=== PATIENT | female | born 1965 | race Caucasian/White ===

== ENCOUNTER 2016-12-19 22:33 | Emergency (ER) | payer OTHER ==
[~2016-12-19 22:33] MED LIST: DIAZEPAM5 MG PO; FLUOXETINE HYDR20 MG PO; MOTRIN800 MG PO; PERCOCET 325 MG1 TA2 PO; SYMBICORT 160/41 PUF INH
[2016-12-19 22:51] VITALS: BP 118/84
--- NOTE | 2016-12-19 23:14 | ED GENERAL ADULT ---
History of Present Illness General Chief Complaint: ETOH/Drug Related Complaint Stated Complaint: BIBA ETOH Source: patient, old records, EMS, police Exam Limitations: no limitations Vital Signs & Intake/Output Vital Signs & Intake/Output Vital Signs Date Time Temp Pulse Resp B/P B/P Pulse O2 O2 Flow FiO2 Mean Ox Delivery Rate 12/19 2313 Room Air 12/19 2251 95.7 73 16 118/84 95 Room Air Allergies Coded Allergies: NO KNOWN ALLERGIES (12/19/16) Reconcile Medications Budesonide/Formoterol Fumara (Symbicort 160-4.5 Mcg Inhaler) 160 MCG/4.5 MCG PUF 2 PUF INH PRN RESPIRATORY (Reported) Diazepam 5 MG TAB 1 TAB PO TID PRN ANXIETY (Reported) FLUOXETINE HCL (Fluoxetine Hydrochloride) 20 MG CAP 60 MG PO DAILY MENTAL HEALTH (Reported) Triage Note: BIBA ON PEER FOR ACUTE ETOH AND DRUG INTOXICATION. REPORTEDLY DRANK HALF A PINT OF VODKA AND TOOK 4 VALIUM TABLETS. PT TEARFUL AGITATED CRYING. PT TALKING ABOUT DIFFICULTIES WITH HER CHILDREN AND VERBALIZED SIGNIFIGANT STRESSORS. PER EMS PT HAD BRIEF EPISODE OF UNRESPONSIVENESS STONER HAND. PT CURRENTLY AWAKE AND YELLING AT STAFF. Triage Nurses Notes Reviewed? yes HPI: Patient called 911 because her 13-year-old was not listening to her. Upon police arrival patient was found to be intoxicated. Patient admitted to drinking vodka and taking 4 Valium tablets. Patient denies any suicidal ideations. Patient states that she is just so stressed out about her children and that is why she took the Valium. Patient was brought in on a police paper for evaluation. Patient is agitated upon arrival. Patient is not redirectable. Patient denies any hallucinations. Past History Travel History Traveled to [place] past 21 day No Medical History Any Pertinent Medical History? see below for history Neurological: NONE EENT: NONE Cardiovascular: NONE Respiratory: ?COPD Gastrointestinal: NONE Hepatic: NONE Renal: NONE Musculoskeletal: osteoarthritis Psychiatric: anxiety Endocrine: NONE Blood Disorders: NONE Cancer(s): NONE Surgical History Surgical History: , TONSILLECTOMY Psychosocial History Who do you live with Family What is your primary language Arabic Tobacco Use: Current Daily Use Daily Tobacco Use Amount/Type: => 5 Cigarettes daily ETOH Use: occasional use Illicit Drug Use: denies illicit drug use Family History Hx Contributory? No Review of Systems Review of Systems Constitutional: Reports: no symptoms. EENTM: Reports: no symptoms. Respiratory: Reports: no symptoms. Cardiovascular: Reports: no symptoms. GI: Reports: no symptoms. Genitourinary: Reports: no symptoms. Musculoskeletal: Reports: no symptoms. Skin: Reports: no symptoms. Neurological/Psychological: Reports: no symptoms. Hematologic/Endocrine: Reports: no symptoms. Immunologic/Allergic: Reports: no symptoms. All Other Systems: Reviewed and Negative Physical Exam Physical Exam General Appearance: well developed/nourished, alert, awake, moderate distress, intoxicated Head: atraumatic, normal appearance Eyes: Bilateral: PERRL, EOMI, other (SLUGGISH). Ears, Nose, Throat: normal pharynx, normal ENT inspection, hearing grossly normal Neck: normal inspection, supple, full range of motion Respiratory: normal breath sounds, chest non-tender, no respiratory distress, lungs clear Cardiovascular: regular rate/rhythm, normal peripheral pulses Gastrointestinal: normal bowel sounds, soft, non-tender, no organomegaly Back: normal inspection, normal range of motion Extremities: normal inspection, normal capillary refill, normal range of motion, no edema Neurologic/Psych: no motor/sensory deficits, awake, alert, oriented x 3, normal mood/affect Skin: intact, normal color, warm/dry Lymphatic: no anterior cervical tracy Core Measures ACS in differential dx? No CVA/TIA Diagnosis: No Severe Sepsis Present: No Septic Shock Present: No Progress Differential Diagnoses I considered the following diagnoses in my evaluation of the patient: [ALCOHOL INTOXICATION] Plan of Care: Orders Procedure Date/time Status Regular Diet 12/20 B Active Continuous Observation Monitor 12/20 0235 Active Initial ED EKG: none Comments: Patient required chemical restraints for uncontrolled agitation Patient's is here to pick her up. He will watch her tonight. He has no concerns for her safety. Departure Departure Disposition: HOME OR SELF CARE Condition: Stable Clinical Impression Primary Impression: Alcohol intoxication Qualifiers: Complication of substance-induced condition: uncomplicated Qualified Code: F10.920 - Alcohol use, unspecified with intoxication, uncomplicated Referrals: MAYRA COTE APRN (PCP/Family) Additional Instructions: RETURN FOR ANY CONCERNS Departure Forms: Customer Survey General Discharge Information Critical Care Note Critical Care Note Critical Care Time: mins: (45 MIN)
== END 2016-12-20 03:50 ==
LOC: ERH 22:33
DX: F11.29 Opioid dependence with unspecified opioid-induced disorder (principal); R45.1 Restlessness and agitation
CPT/HCPCS: 96372; 99291; J1200; J1630

== ENCOUNTER 2016-12-26 16:14 | Emergency (ER) | payer OTHER ==
[~2016-12-26] VITALS: Ht 149.9 cm; Wt 58.1 kg
--- NOTE | 2016-12-26 16:36 | ED PSYCHIATRIC COMPLAINT ---
History of Present Illness General Chief Complaint: ETOH/Drug Related Complaint Stated Complaint: BIBA FOR ETOH/ SI Source: patient, EMS Exam Limitations: intoxication Allergies Coded Allergies: NO KNOWN ALLERGIES (12/19/16) Reconcile Medications Budesonide/Formoterol Fumara (Symbicort 160-4.5 Mcg Inhaler) 160 MCG/4.5 MCG PUF 2 PUF INH PRN RESPIRATORY (Reported) Diazepam 5 MG TAB 1 TAB PO TID PRN ANXIETY (Reported) FLUOXETINE HCL (Fluoxetine Hydrochloride) 20 MG CAP 60 MG PO DAILY MENTAL HEALTH (Reported) Triage Note: PT BIBA FOR ETOH AND +SI, ON ARRIVAL PT APPEARS INTOXICATED, NOT MAKING ANY SI STATEMENTS CURRENTLY, STATING "IM JUST HERE CAUSE IM A DRUNK! DONT STEAL MY MONEY" Triage Nurses Notes Reviewed? yes Onset: Abrupt Duration: hour(s): (FEW) Timing: single episode today Severity: moderate, severe Associated Symptoms: anxiety HPI: This is a 51-year-old female with history of anxiety who presents to the ER intoxicated. According to the patient she called the police as her saw her car. When police was at the scene she told them she was sick of it and wanted to . She states that she said that only that she was sick and tired of her situation with her and 33 years. She states she would never kill herself but she has a 13-year-old son as well as a 15-year-old autistic son. No history of suicide attempt. She denies being in the ER recently which was here last week for intoxication as well. (OMER LINCOLN,DEVEN) Vital Signs & Intake/Output Vital Signs & Intake/Output Vital Signs Date Time Temp Pulse Resp B/P B/P Pulse O2 O2 Flow FiO2 Mean Ox Delivery Rate 12/26 2128 98.1 73 18 110/48 97 Room Air 12/26 1849 98.6 72 20 111/56 98 Room Air 12/26 1658 99 Room Air 12/26 1624 97.8 70 18 107/69 98 Nasal Cannula Past History Travel History Traveled to [place] past 21 day No Medical History Any Pertinent Medical History? see below for history Neurological: NONE EENT: NONE Cardiovascular: NONE Respiratory: ?COPD Gastrointestinal: NONE Hepatic: NONE Renal: NONE Musculoskeletal: osteoarthritis Psychiatric: anxiety Endocrine: NONE Blood Disorders: NONE Cancer(s): NONE Surgical History Surgical History: , TONSILLECTOMY Psychosocial History Who do you live with Family What is your primary language Yoruba Tobacco Use: Current Daily Use Daily Tobacco Use Amount/Type: => 5 Cigarettes daily ETOH Use: alcoholic Illicit Drug Use: denies illicit drug use Family History Hx Contributory? No (DEVEN KAYE MD) Review of Systems Review of Systems Constitutional: Reports: no symptoms. EENTM: Reports: no symptoms. Respiratory: Reports: no symptoms. Cardiovascular: Reports: no symptoms. GI: Reports: no symptoms. Genitourinary: Reports: no symptoms. Musculoskeletal: Reports: no symptoms. Skin: Reports: no symptoms. Neurological/Psychological: Reports: anxiety, depressed, emotional problems. Hematologic/Endocrine: Reports: no symptoms. Immunologic/Allergic: Reports: no symptoms. All Other Systems: Reviewed and Negative (DEVEN KAYE MD) Physical Exam Physical Exam General Appearance: well developed/nourished, alert, awake, anxious, mild distress, intoxicated Head: atraumatic Eyes: Bilateral: PERRL, EOMI. Ears, Nose, Throat: NO TEETH Neck: normal inspection, supple Respiratory: normal breath sounds Cardiovascular: regular rate/rhythm Gastrointestinal: soft, non-tender Extremities: normal range of motion Neurological/Psychiatric: awake, alert, anxious Skin: intact, normal color, warm/dry (DEVEN KAYE MD) SAD PERSONS Done? deferred to crisis (VICK LINCOLN,EMA Scruggs) Progress Differential Diagnosis: ALCOHOL INTOXICATION, DEPRESSION, ANXIETY Hand-Off Endorsed To: EMA HICKMAN MD Endorsed Time: 1905 Pending: consult (CRISIS), other (SOBRIETY) (DEVEN KAYE MD) Plan of Care: Orders Procedure Date/time Status Regular Diet 12/27 B Active ED CRISIS PSYCH CONSULT 12/26 1804 Active Continuous Observation Monitor 12/26 1635 Active URINE DRUGS OF ABUSE 12/26 1635 Complete ETHANOL 12/26 1635 Complete COMPREHENSIVE METABOLIC PANEL 12/26 1635 Complete CBC WITHOUT DIFFERENTIAL 12/26 1635 Complete Laboratory Tests 12/26/16 1832: Urine Opiates Screen < 100.00, Methadone Screen < 40, Barbiturate Screen < 60, Ur Phencyclidine Scrn < 6.00, Amphetamines Screen < 100, U Benzodiazepines Scrn > 800 H, Urine Cocaine Screen < 50, Urine Cannabis Screen > 80.00 H 12/26/16 1654: Anion Gap 10, Estimated GFR > 60, BUN/Creatinine Ratio 17.1, Glucose 91, Calcium 9.2, Total Bilirubin 0.5, AST 22, ALT 32, Alkaline Phosphatase 72, Total Protein 7.4, Albumin 4.3, Globulin 3.1, Albumin/Globulin Ratio 1.4, CBC w Diff NO MAN DIFF REQ, RBC 5.00, MCV 96.8, MCH 32.8 H, RDW 13.3, MPV 8.6, Gran % 51.9, Lymphocytes % 41.4, Monocytes % 4.5, Eosinophils % 1.7, Basophils % 0.5, Absolute Granulocytes 3.5, Absolute Lymphocytes 2.8, Absolute Monocytes 0.3, Absolute Eosinophils 0.1, Absolute Basophils 0, PUBS MCHC 33.9, Serum Alcohol 183.0 Comments: 12/26/2016 7:27:44 PM patient signed out to 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 (VICK LINCOLN,EMA Scruggs) Departure Departure Disposition: STILL A PATIENT Condition: Stable Referrals: MAYRA COTE APRN (PCP/Family) Departure Forms: Customer Survey General Discharge Information (OMER LINCOLN,DEVEN) Departure Clinical Impression Primary Impression: Alcohol intoxication Qualifiers: Complication of substance-induced condition: uncomplicated Qualified Code: F10.920 - Alcohol use, unspecified with intoxication, uncomplicated Secondary Impressions: Marijuana smoker Additional Instructions: Follow-up with care tomorrow. Notify your primary care doctor of this emergency department visit and treatment plan. Return if any concerns or sudden worsening. (VICK LINCOLN,EMA Scruggs)
[2016-12-26 17:01] LABS: ABSOLUTE BASOPHIL COUNT 0 /CUMM (0.0-0.2); ABSOLUTE EOSINOPHIL COUNT 0.1 /CUMM (0.0-0.7); ABSOLUTE GRANULOCYTE CT 3.5 /CUMM (1.4-6.5); ABSOLUTE LYMPH COUNT 2.8 /CUMM (1.2-3.4); ABSOLUTE MONOCYTE COUNT 0.3 /CUMM (0.10-0.60); BASOPHIL % 0.5 % (0.0-2.0); EOSINOPHIL % 1.7 % (0-5); GRANULOCYTE % 51.9 % (42.2-75.2); HEMATOCRIT 48.3 % (37-47); MEAN CORPUSCULAR HGB 32.8 PG (27.0-31.0); MEAN CORPUSCULAR HGB CONC 33.9 G/DL (33.0-37.0); MEAN CORPUSCULAR VOLUME 96.8 FL (81.0-99.0); MEAN PLATELET VOLUME 8.6 FL (7.4-10.4); PLATELET COUNT 279 /CUMM (130-400); RBC DISTRIBUTION WIDTH 13.3 % (11.5-14.5); WHITE BLOOD CELL COUNT 6.8 /CUMM (4.8-10.8)
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
[2016-12-26 21:29] VITALS: BP 110/48
== END 2016-12-26 21:29 ==
LOC: ERH 16:14
PROVIDERS: Emergency Medicine
DX: F10.129 Alcohol abuse with intoxication, unspecified (principal); F12.10 Cannabis abuse, uncomplicated
CPT/HCPCS: 80307; G0463; G0480

== ENCOUNTER 2017-07-06 20:23 | Emergency (ER) | payer OTHER ==
[~2017-07-06] VITALS: Ht 157.5 cm; Wt 91.6 kg
[~2017-07-06 20:23] MED LIST changes: +BUSPIRONE HCL10 M1 PO; +BUSPIRONE HCL5 M1 PO; +DIAZEPAM5 M1 PO; +FLUOXETINE HCL20 M2 PO; +MOBIC15 M1 PO
--- NOTE | 2017-07-06 20:26 | ED PSYCHIATRIC COMPLAINT ---
History of Present Illness General Chief Complaint: Psychiatric Related Complaint Stated Complaint: BIBA SI Source: patient, EMS, police Exam Limitations: clinical condition Vital Signs & Intake/Output Vital Signs & Intake/Output Vital Signs Date Time Temp Pulse Resp B/P B/P Pulse O2 O2 Flow FiO2 Mean Ox Delivery Rate 07/08 0906 98.4 75 20 144/72 07/08 0906 98.4 75 20 144/72 96 Room Air 07/08 0641 97.7 61 16 147/69 96 Room Air 07/08 0300 97.4 69 20 140/74 98 07/08 0052 96 94 07/08 0020 97.4 75 20 138/69 94 07/07 2230 97.0 64 16 133/76 97 Room Air 07/07 1858 98.3 72 18 134/76 95 Room Air 07/07 1701 97.6 79 18 130/92 94 Room Air 07/07 1515 98.4 86 18 144/90 93 Room Air 07/07 1250 96.7 80 17 134/74 95 Room Air Allergies Coded Allergies: NO KNOWN ALLERGIES (12/19/16) Reconcile Medications Buspirone HCl 10 MG TABLET 1 TAB PO BID MENTAL HEALTH (Reported) Diazepam 5 MG TABLET 1 TAB PO 4XDAILY PRN ANXIETY/PANIC ATTACKS (Reported) Fluoxetine HCl 20 MG CAPSULE 60 MG PO DAILY MENTAL HEALTH (Reported) Triage Nurses Notes Reviewed? yes Onset: Abrupt Duration: hour(s): (FEW) Timing: single episode today Severity: moderate, severe Associated Symptoms: DRINKING, MAKING SUICIDAL STATEMENTS HPI: This is a 52 year old female who presents to the ER for chief complaint of alcohol intoxication. She reports a pint of vodka ingestion. According to EMS and police her minor children at home took away her alcohol and she reported that if she couldn't drink she would kill herself. Patient presents disheveled, belligerent, very loud. (Mikki LINCOLN,Kalyn) Past History Medical History Any Pertinent Medical History? see below for history Neurological: NONE EENT: NONE Cardiovascular: NONE Respiratory: ?COPD Gastrointestinal: NONE Hepatic: NONE Renal: NONE Musculoskeletal: osteoarthritis Psychiatric: anxiety Endocrine: NONE Blood Disorders: NONE Cancer(s): NONE Tetanus Vaccine: 05/11/17 Surgical History Surgical History: , TONSILLECTOMY Psychosocial History Who do you live with Family What is your primary language Guatemalan Family History Hx Contributory? No (Kalyn Kaye MD) Review of Systems Review of Systems Constitutional: Reports: see HPI (LIMITED (INTOXICATED)). Denies: chills, fever. EENTM: Reports: no symptoms. Respiratory: Reports: no symptoms. Cardiovascular: Reports: no symptoms. GI: Reports: no symptoms. Genitourinary: Reports: no symptoms. Musculoskeletal: Reports: no symptoms. Skin: Reports: no symptoms. Neurological/Psychological: Reports: anxiety, emotional problems. Hematologic/Endocrine: Reports: no symptoms. Immunologic/Allergic: Reports: no symptoms. All Other Systems: Reviewed and Negative (Kalyn Kaye MD) Physical Exam Physical Exam General Appearance: well developed/nourished, alert, awake, mild distress, moderate distress, obese, DISSHEVELED Head: atraumatic Eyes: Bilateral: PERRL, EOMI. Ears, Nose, Throat: normal pharynx, normal ENT inspection, hearing grossly normal Neck: normal inspection, supple Respiratory: normal breath sounds Cardiovascular: regular rate/rhythm Gastrointestinal: soft, non-tender Extremities: normal range of motion Neurological/Psychiatric: no motor/sensory deficits, awake, agitated, alert Appearance/Memory/Insight: disheveled, impaired insight Behavoir/Eye Contact/Speech: uncooperative, decreased rate of speech Thoughts/Hallucinations: no apparent hallucination Skin: intact, normal color, warm/dry SAD PERSONS Done? unobtained due to conditi (Kalyn Kaye MD) Progress Differential Diagnosis: ALCOHOL INTOXICATION, SUBSTANCE ABUSE, ANXIETY, DEPRESSION, ? SUICIDAL IDEATION Plan of Care: Orders Procedure Date/time Status Continuous Observation Monitor 07/08 0820 Active Continuous Observation Monitor 07/08 0549 Active Current Medications Sig/Boris Start time Last Medication Dose Stop Time Status Admin Diazepam 5 MG 4 TIMES/DAY PRN 07/07 1030 AC 07/07 (Valium) 2110 Buspirone HCl 10 MG BID 07/07 1027 UNVr 07/08 (Buspar) 1049 Fluoxetine HCl 60 MG DAILY 07/07 1027 UNVr 07/08 (Prozac) 1049 Patient and became very lethargic after arrival. Minimal response to sternal rub. She was given a dose of Narcan with no significant change. Patient then woke up and stated that she didn't want to have blood drawn. We will continue to monitor her. Borderline low blood pressure, IV fluids ordered. Hand-Off Endorsed To: Mikey Powell MD Endorsed Time: 0700 Pending: consult (CRISIS INITIAL EVALUATION) (Kalyn Kaye MD) Hand-Off Endorsed To: Khris Ivy MD Endorsed Time: 190 Pending: consult (CRISIS RE-EVAL) Comments: PT HAS BEEN SEEN AND EVALUATED BY THE CHECK WEIGHER. SHE IS TO REMAIN IN THE ER TONIGHT FOR RE-EVAL IN THE MORNING. HER DAILY MEDICATIONS HAVE BEEN ORDERED. Patient has been seen and reevaluated by brim raiser and is stable for discharge at this time. (Mikey Powell MD) Departure Departure Condition: Stable Clinical Impression Primary Impression: Alcohol intoxication Secondary Impressions: Benzodiazepine dependence Referrals: Keli Becker APRN (PCP/Family) Departure Forms: Customer Survey General Discharge Information (Kalyn Kaye MD) Departure Disposition: HOME OR SELF CARE Additional Instructions: RETURN IF SYMPTOMS WORSEN OR FOR ANY CONCERNS CALL 211 OR RETURN TO THE ER FOR ANY THOUGHTS OF HARMIING YOURSELF OR ANYONE ELSE. (Mikey Powell MD) Departure Disposition: STILL A PATIENT Condition: Stable Clinical Impression Primary Impression: Alcohol intoxication Secondary Impressions: Benzodiazepine dependence Referrals: Keli Becker APRN (PCP/Family) Departure Forms: Customer Survey General Discharge Information (Kalyn Kaye MD) % 1.9, Basophils % 0.6, Absolute Granulocytes 4.4, Absolute Lymphocytes 4.1 H, Absolute Monocytes 0.4, Absolute Eosinophils 0.2, Absolute Basophils 0.1, PUBS MCHC 33.7, Serum Alcohol 214.0 Microbiology 07/06 2121 URINE ROUT: Urine Culture - CAN Cancelled: Cancelled via OE: NOT INDICATED Patient and became very lethargic after arrival. Minimal response to sternal rub. She was given a dose of Narcan with no significant change. Patient then woke up and stated that she didn't want to have blood drawn. We will continue to monitor her. Borderline low blood pressure, IV fluids ordered. Hand-Off Endorsed To: Mikey Powell MD Endorsed Time: 0700 Pending: consult (CRISIS INITIAL EVALUATION) (Kalyn Kaye MD) Hand-Off Endorsed To: Khris Ivy MD Endorsed Time: 1899 Pending: consult (CRISIS RE-EVAL) Comments: PT HAS BEEN SEEN AND EVALUATED BY THE CHECK WEIGHER. SHE IS TO REMAIN IN THE ER TONIGHT FOR RE-EVAL IN THE MORNING. HER DAILY MEDICATIONS HAVE BEEN ORDERED. (Andre LINCOLN,Mikey Quintanilla) Departure Departure Disposition: STILL A PATIENT Condition: Stable Clinical Impression Primary Impression: Alcohol intoxication Secondary Impressions: Benzodiazepine dependence Referrals: Keli Becker APRN (PCP/Family) Departure Forms: Customer Survey General Discharge Information (Mikki LINCOLN,Kalyn)
[2017-07-06 21:51] LABS: ABSOLUTE BASOPHIL COUNT 0.1 /CUMM (0.0-0.2); ABSOLUTE EOSINOPHIL COUNT 0.2 /CUMM (0.0-0.7); ABSOLUTE GRANULOCYTE CT 4.4 /CUMM (1.4-6.5); ABSOLUTE LYMPH COUNT 4.1 /CUMM (1.2-3.4); ABSOLUTE MONOCYTE COUNT 0.4 /CUMM (0.10-0.60); BASOPHIL % 0.6 % (0.0-2.0); EOSINOPHIL % 1.9 % (0-5); HEMATOCRIT 47.8 % (37-47); MEAN CORPUSCULAR HGB 31.9 PG (27.0-31.0); MEAN CORPUSCULAR HGB CONC 33.7 G/DL (33.0-37.0); MEAN CORPUSCULAR VOLUME 94.5 FL (81.0-99.0); MEAN PLATELET VOLUME 7.9 FL (7.4-10.4); PLATELET COUNT 347 /CUMM (130-400); RBC DISTRIBUTION WIDTH 12.9 % (11.5-14.5); RED BLOOD CELL CT 5.05 /CUMM (4.20-5.40); WHITE BLOOD CELL COUNT 9.1 /CUMM (4.8-10.8)
[2017-07-06 21:53] LABS: GRANULOCYTE % 48.6 % (42.2-75.2)
--- NOTE | 2017-07-07 09:35 | ED PSYCH CRISIS CONSULTATION ---
Crisis Consult Basic Assessment Date of Consult: 07/07/17 Responsible Person/Accompanied By: self/biba Insurance Authorization: Insurance #1: Insurance name: HERIBERTO Berman C&A Phone number: Policy number: [id number] Group number: Authorization number: ED Provider: Patient's ED Provider: Kalyn Kaye MD Primary Care Physician: Patient's PCP: Keli Becker APRN PCP's Current Psychiatrist: [facility] [phone] Chief Complaint: Psychiatric Related Complaint Patient's Quote: I drank 1/2 pt of vodka last night. I fell off the wagon. Present Illness: Pt is a 52 yo female biba last evening to [facility] ED on an [place] [employer] Peer. PEER documents that pt was drinking vodka and when her son took the bottle away she threatened to harm herself. Pt has a hx of [facility] ED presentations for alcohol intoxification. Pt has no reported inpatient psychiatric or substance abuse tx history. Pt reports that she has been maintaining sobriety past 2 months but relapsed yesterday. She denies remembering making a suicidal statement and reports she has never been suicdal and wouldn't kill herself because she cares for her children too much to do that. Pt appears to be a poor front office spec regarding the details of the incident prior to arrival as her version of events are inconsistent with police documentation and her sister's collateral report. 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 She also reports long standing tx with high school social studies tutor Radha Tinoco. She reports having completed IOP and is currently in 1x/wk relapse prevention group with Jennifer Conroy). Pt initially denies DCF involvement but admits to having an open case with [place] [facility]CF [facility] and worker Hi Joyce. Pt was notified that this worker will need to make a DCF hotline report due to her intoxification and suicidal statements were made in the presence of her two sons (ages 16,14). Boys spent last night in the care of her sister Cheng and returned to their father Victor Manuel in the morning. Pt presents as tired, depressed and shameful regarding relapse. Pt is cooperative and OX3.Pt became tearful worrying that DCF will try to take away her children. Pt denies SI/HI; AH/VH. Pt reports willingness to return to more intensive substance abuse tx and is requesting return to [place] [facility]. Pt informed she will be h/o for further observation and assessment and re-evaluated tomorrow morning. Patient's Address: [address] [place] [id number] Other Phone Number: Who Do You Live With? Family Family/Informants Interviewed: Collateral provided by pt sister Beatrice [phone]. She reports the kids called her yesterday to be picked up because their mom had been drinking. She reports this has happened frequently over the years. She reports the boys have 2x been in her care but have been back with their parents since 2009. She thinks there is a current DCF open case. She reports concern that pt is an alcoholic and when intoxicated becomes unsafe. She reports pt intentionally cut herself about a month ago requiring stitches though pt reports it was an accident. She reports pt has been doing well not drinking past 3 weeks. Collateral also provided by Victor Manuel [phone]. He reports being unsure why police were called yesterday. He reports he was home but in another room. He was only aware that pt had been drinking but unable to provide further information. He reports pt had been doing well avoiding drinking but thinks maybe she relapsed because they are having some financial difficulties since he is currently unemployed. Allergies - Coded Allergies: NO KNOWN ALLERGIES (12/19/16) Current Medications - Scheduled Medications Buspirone HCl 10 MG TABLET 1 TAB PO BID MENTAL HEALTH #60 (Reported) Entered as Reported by Jennifer Villalobos on 05/20/17 1452 Fluoxetine HCl 20 MG CAPSULE 60 MG PO DAILY MENTAL HEALTH #90 (Reported) Entered as Reported by Jennifer Villalobos on 05/11/17 175 Last Taken: At an unknown date and time Scheduled PRN Medications Diazepam 5 MG TABLET 1 TAB PO 4XDAILY PRN ANXIETY/PANIC ATTACKS #120 ( Reported) Entered as Reported by Jennifer Villalobos on 05/11/17 175 Laboratory Results: Laboratory Tests 07/07/17 0614: Lactic Acid Cancelled 07/07/17 0359: Lactic Acid 1.9 07/06/17 2240: Urine Opiates Screen < 100.00, Methadone Screen < 40, Barbiturate Screen < 60, Ur Phencyclidine Scrn < 6.00, Amphetamines Screen < 100, U Benzodiazepines Scrn > 800 H, Urine Cocaine Screen < 50, Urine Cannabis Screen < 5.00 07/06/172129: Anion Gap 13, Estimated GFR > 60, BUN/Creatinine Ratio 17.5, Glucose 96, Lactic Acid 2.5 H, Calcium 9.5, Magnesium 2.1, Total Bilirubin 0.2, AST 20, ALT 24, Alkaline Phosphatase 87, Total Protein 7.2, Albumin 4.2, Globulin 3.0, Albumin/ Globulin Ratio 1.4, CBC w Diff NO MAN DIFF REQ, RBC 5.05, MCV 94.5, MCH 31.9 H, RDW 12.9, MPV 7.9, Gran % 48.6, Lymphocytes % 44.7, Monocytes % 4.2, Eosinophils % 1.9, Basophils % 0.6, Absolute Granulocytes 4.4, Absolute Lymphocytes 4.1 H, Absolute Monocytes 0.4, Absolute Eosinophils 0.2, Absolute Basophils 0.1, PUBS MCHC 33.7, Serum Alcohol 214.0 Microbiology 07/06 2121 URINE ROUT: Urine Culture - CAN Cancelled: Cancelled via OE: NOT INDICATED (Juan Pinto LCSW) Addendum Note Addendum Went to check on patient for evening shift evaluation. Patient was sleeping soundly and would not respond to voice prompting. (Jean-Paul HARRINGTON,Weskan) Past History Past Medical History Neurological: NONE EENT: NONE Cardiovascular: NONE Respiratory: ?COPD Gastrointestinal: NONE Hepatic: NONE Renal: NONE Musculoskeletal: osteoarthritis Psychiatric: anxiety Endocrine: NONE Blood Disorders: NONE Cancer(s): NONE Past Surgical History Surgical History: , TONSILLECTOMY Psychosocial History Strengths/Capabilities: cares about her children. Advocates for services for 16 yo son with autism. Reports current involvement with Relapse Prevention Program at [facility]. Physical Limitations (Interventions): none noted Psychiatric Treatment History Psych Treatment Psychiatric Treatment Yes Inpatient Treatment No Outpatient Treatment Yes Location of Treatment [facility] Reason for Treatment Anxiety ETOH Dates of Treatment long standing Response to Treatment off and on stability Diagnosis by History: Anxiety ETOH Substance Use/Abuse History Drug Use/Abuse Substances Used/Abused Yes Substance Used/Abused Alcohol Last Used last night How much used/taken 1/2 pt of vodka How often reports last night was first drink in a couple of months Substance Abuse Treatment Substance Abuse Treatment Past Substance Abuse TX Yes Inpatient Treatment No Outpatient Treatment Yes Location of Treatment [facility] Reason for Treatment ETOH abuse Dates of Treatment current Response to Treatment sporadic sobriety Comments: pt prescribed Valium for anxiety d/o (Juan Pinto LCSW) Current Mental Status Mental Status Orientation: Person, Place, Situation Affect: WNL Speech: WNL Neuro-vegetative: WNL Appearance Appearance- Dress/Hygiene: hospital scrubs, flushed, bllod shot eyes; looks older than stated age Behaviors Thought Process: WNL Thought Content: WNL Memory: WNL Insight: Poor SI/HI Risk Assessment Past Suicidal Ideation/Attempts No Current Suicidal Ideation/Att No Past Homicidal Ideation/Att: No Current Homicidal Ideation/Attempts No Degree of Intent: None Danger To: Others, Self Gravely Disabled: Lack of Insight, Poor Impulse Control, Poor Judgment Risk Factors: high anxiety/distress, substance abuse, poor impulse control Lethality Ratin PTSD Checklist PTSD Done? 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 Pt reports feeling guilt and shame due to relapse but denies SI. Pt states willingness to return to [facility]. (Juan Pinto LCSW) Departure Disposition Psych Medical Clearance Date: 07/07/17 Medically Cleared at: 0845 Time Started: 0845 Time Ended: 929 Psychiatrist Consulted: Khris Oh MD Date Disposition Established: 07/07/17 Time Disposition Established: 1030 Plan for Disposition - Modality: h/o for a reassessment Rationale for Disposition: Pt biba on an [place] [employer] PEER. Report documents pt had been drinking vodka and threatened to harm self when her son took the bottle away. Pt has a hx of alcohol abuse. Pt denies SI. She admits to making similiar past staements when drinking but denies plan or intent. Plan is for pt to be h/o in ED and reassessed tomorrow. Additional Instructions: Pt denies need to admit to substance abuse inpatient but is willing to return to [facility]. Referrals Keli Becker APRN (PCP/Family) (Millie MONET,Juan) Disposition Psych Medical Clearance Date: 07/08/17 Medically Cleared at: 1000 Time Started: 1000 Time Ended: 1040 Psychiatrist Consulted: Khris Oh MD Date Disposition Established: 07/08/17 Time Disposition Established: 1040 Plan for Disposition - Modality: Outpatient Facility: Care Rationale for Disposition: pT DENIES si/hi/sh OR PSYCHOSOS AND IS mOTIVATE FOR iop loc. (Gisselle Hairston LCSW) Addendum Addendum Crisis re-evaluated pt and pt continues to deny SI/HI/SH or psychosis. she is motivated for IOP LOC. Case reviewed with Dr. Oh and he approved discharge. (Gisselle Hairston LCSW)
[2017-07-08 11:12] VITALS: BP 141/70
== END 2017-07-08 11:13 ==
LOC: ERH 20:23
PROVIDERS: Emergency Medicine
DX: F13.20 Sedative, hypnotic or anxiolytic dependence, uncomplicated (principal); F10.129 Alcohol abuse with intoxication, unspecified
CPT/HCPCS: 80307; 87086; 93005; 93010; 96361; 96372; 96374; G0463; G0480; J2310; J2405; J3360

== ENCOUNTER 2017-09-10 13:42 | Emergency (ER) | payer OTHER ==
[2017-09-10 14:02] VITALS: BP 136/84
--- NOTE | 2017-09-10 16:18 | RADIOLOGY REPORT ---
EXAMINATION: XR KNEE, LEFT CLINICAL INFORMATION: Knee pain COMPARISON: 11/01/2015 TECHNIQUE: Four views of the left knee. FINDINGS: Moderate medial compartment arthritis, with joint space loss and marginal osteophytes. Slightly progressed from previous. Lateral and patellofemoral compartments appear maintained. No visible acute fracture or dislocation. Moderate joint effusion, more prominent as compared to previous. IMPRESSION: 1. Moderate medial compartment arthritis, slightly worsened previous. 2. Moderate knee joint effusion, more prominent as compared to previous.
== END 2017-09-10 15:19 | disposition admitted as inpatient to this hospital (09) ==
LOC: ERH 13:42
DX: M25.562 Pain in left knee (principal)
CPT/HCPCS: 73562-LT; 99281

== ENCOUNTER 2017-09-29 17:55 | Emergency (ER) | payer OTHER ==
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
[2017-09-29 19:37] LABS: ABSOLUTE BASOPHIL COUNT 0.1 /CUMM (0.0-0.2); ABSOLUTE EOSINOPHIL COUNT 0.1 /CUMM (0.0-0.7); ABSOLUTE GRANULOCYTE CT 3.6 /CUMM (1.4-6.5); ABSOLUTE LYMPH COUNT 2.7 /CUMM (1.2-3.4); ABSOLUTE MONOCYTE COUNT 0.3 /CUMM (0.10-0.60); BASOPHIL % 0.9 % (0.0-2.0); EOSINOPHIL % 1.5 % (0-5); GRANULOCYTE % 53.2 % (42.2-75.2); MEAN CORPUSCULAR HGB 32.7 PG (27.0-31.0); MEAN CORPUSCULAR HGB CONC 34.5 G/DL (33.0-37.0); MEAN CORPUSCULAR VOLUME 94.6 FL (81.0-99.0); MEAN PLATELET VOLUME 7.8 FL (7.4-10.4); PLATELET COUNT 279 /CUMM (130-400); RBC DISTRIBUTION WIDTH 12.7 % (11.5-14.5); RED BLOOD CELL CT 4.45 /CUMM (4.20-5.40); WHITE BLOOD CELL COUNT 6.8 /CUMM (4.8-10.8)
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
[2017-09-30 09:34] VITALS: BP 150/80
--- NOTE | 2017-09-30 14:35 | ED PSYCH CRISIS CONSULTATION ---
Crisis Consult Basic Assessment Date of Consult: 09/30/17 Responsible Person/Accompanied By: Brought in by ambulance Insurance Authorization: Insurance #1: Insurance name: HERIBERTO Berman C&A Policy number: [id number] ED Provider: Patient's ED Provider: Filemon Jackson MD Primary Care Physician: Patient's PCP: Keli Becker APRN PCP's Current Psychiatrist: Bárbara Stratton APRN Chief Complaint: Psychiatric Related Complaint Patient's Quote: "I didn't need to come here...I was fine." Present Illness: Patient presents to [facility] emergency department on a licensed clinical executive secretary social welfare emergency certificate. The certificate states client called the [facility] crisis line and endorsed suicidal ideation. Patient's blood alcohol level was ~219 when evaluated. Patient admits she drank ~1/2 pint of vodka yesterday. Patient has longstanding history of alcohol use disorder and also reports historical diagnoses of depressive disorder and panic disorder. Patient presents alert, oriented, euthymic. She denies auditory / visual hallucinations and there is no indication of psychosis. Patient denies suicidal ideation, intent or plan. She states "I'm not going to kill my self." She elaborated "when I drink, I say something stupid." Patient states "I didnt need to come here...I was fine." Patient is currently in treatment at [facility]'s intensive outpatient program (IOP.) Patient also has outpatient mental health providers at [facility]. Patient is currently on the following psychotropic medication: Prozac, Buspar, and Diazapem. Patient is on benzodiazapine medication due to panic disorder. Patient receives medication management from Bárbara Stratton APRN at [facility]. Patient has the support of her who denies any concerns regarding her being discharged home. Patient is also involved with DCF due to her alcohol use. Patient asserts her children were with her sister yesterday and will remain there today. CSSRS [place] Suicidality scale administered - patient denies any suicidal behavior in the past week or suicidal ideation. She does have prior psychiatric treatment, severe anxiety, and substance use as risk factors. Patient identified the following protective factors: identifies reason fo rliving, responsibility to family, supportive family, fear of , spirituality. Patient's Address: [address] [place], [place] [address] Who Do You Live With? Family ( and two children) Family/Informants Interviewed: Allergies - Coded Allergies: No Known Allergies (09/29/17) Current Medications - Scheduled Medications Buspirone HCl 10 MG TABLET 1 TAB PO BID MENTAL HEALTH #60 (Reported) Entered as Reported by Jennifer Villalobos on 05/20/17 1452 Fluoxetine HCl 20 MG CAPSULE 60 MG PO DAILY MENTAL HEALTH #90 (Reported) Entered as Reported by Jennifer Villalobos on 05/11/171751 Scheduled PRN Medications Diazepam 5 MG TABLET 1 TAB PO 4XDAILY PRN ANXIETY/PANIC ATTACKS #120 ( Reported) Entered as Reported by Jennifer Villalobos on 05/11/171751 Laboratory Results: Laboratory Tests 09/29/175: Urine Opiates Screen < 100, Methadone Screen 47, Barbiturate Screen < 60, Ur Phencyclidine Scrn < 6.00, Amphetamines Screen 281, U Benzodiazepines Scrn > 800 H, Urine Cocaine Screen < 50, Urine Cannabis Screen < 5.00, Urine Color YEL, Urine Clarity CLEAR, Urine pH 6.0, Ur Specific [place] 1.020, Urine Protein NEG, Urine Ketones NEG, Urine Nitrite NEG, Urine Bilirubin NEG, Urine Urobilinogen 0.2, Ur Leukocyte Esterase NEG, Ur Microscopic EXAM NOT REQUIRED, Urine Hemoglobin NEG, Urine Glucose NEG 09/29/17 1930: CBC w Diff NO MAN DIFF REQ, RBC 4.45, MCV 94.6, MCH 32.7 H, MCHC 34.5, RDW 12.7 , MPV 7.8, Gran % 53.2, Lymphocytes % 39.5, Monocytes % 4.9, Eosinophils % 1.5, Basophils % 0.9, Absolute Granulocytes 3.6, Absolute Lymphocytes 2.7, Absolute Monocytes 0.3, Absolute Eosinophils 0.1, Absolute Basophils 0.1 09/29/17 1820: Anion Gap 16, Estimated GFR > 60, BUN/Creatinine Ratio 21.3, Glucose 108 H, Calcium 9.8, Total Bilirubin 0.6, AST 24, ALT 21, Alkaline Phosphatase 74, Total Protein 7.4, Albumin 4.0, Globulin 3.4, Albumin/Globulin Ratio 1.2, Serum Alcohol 219.0 Past History Past Medical History Neurological: NONE EENT: NONE Cardiovascular: NONE Respiratory: ?COPD Gastrointestinal: NONE Hepatic: NONE Renal: NONE Musculoskeletal: osteoarthritis Psychiatric: anxiety, depression, PANIC DISORDER AGORAPHOBIA Endocrine: NONE Blood Disorders: NONE Cancer(s): NONE 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 Advocates for services for 16 yo son with autism. Reports current involvement at [facility]. Physical Limitations (Interventions): none noted Psychiatric Treatment History Psych Treatment Psychiatric Treatment Yes Inpatient Treatment Yes Outpatient Treatment Yes Location of Treatment [facility] (outpatient) and [facility] (IOP) Reason for Treatment Alcohol use disorder Dates of Treatment Longstanding treatment since age 16 Response to Treatment Varied - patient has sustained sobriety in the past Diagnosis by History: Anxiety disorder Alcohol use disorder Depressive disorder Substance Use/Abuse History Drug Use/Abuse Substances Used/Abused Yes Substance Used/Abused Alcohol First Use Age 16 Last Used Yesterday How much used/taken ~1/2 pint of Vodka How often Patient reports only one use in past week For how long Patient has extended history of alcohol abuse Route of use Ingestion Substance Abuse Treatment Substance Abuse Treatment Past Substance Abuse TX Yes Inpatient Treatment Yes Outpatient Treatment Yes Location of Treatment [facility] IOP currently Reason for Treatment alcohol use disorder Dates of Treatment September 2017 to present Response to Treatment Positive per patient. Current Mental Status Mental Status Orientation: Person, Place, Situation Affect: Flat Speech: WNL Neuro-vegetative: WNL Appearance Appearance- Dress/Hygiene: Patient dressed in hospital attire - no remarkable features observed. Behaviors Thought Process: WNL Thought Content: WNL Memory: WNL Insight: Fair SI/HI Risk Assessment Past Suicidal Ideation/Attempts Yes Current Suicidal Ideation/Att No Past Homicidal Ideation/Att: No Current Homicidal Ideation/Attempts No Degree of Intent: None Risk Factors: high anxiety/distress, substance abuse Lethality Ratin (mild) PTSD Checklist PTSD Done? patient declined ED Management Sitter: Yes Restraints: No DSM5/PS Stressors/Medical Prob Diagnosis' (DSM 5, Stressors, Medical): F10.20 Alcohol use disorder, Moderate F41.0 Panic disorder F32.9 Unspecified depressive disorder Current GAF: 40 Departure Disposition Psych Medical Clearance Date: 09/30/17 Medically Cleared at: 0815 Time Started: 0815 Time Ended: 899 Psychiatrist Consulted: Murphy LINCOLN,Yvonne Date Disposition Established: 09/30/17 Time Disposition Established: 899 Plan for Disposition - Modality: IOP Facility: [facility] Follow-up Appt Date: 10/01/17 Follow-Up Appt Time: 899 Rationale for Disposition: Crisis evaluation reviewed with on-call psychiatrist Dr. Arrington. Patient does not present with any risk factors currently which would warrant further hold in the ED or consideration of an inpatient psychiatric admission. Patient is involved in treatment at [facility]'s IOP program and will be attending tomorrow. Patient's will support patient as she discharges. Patient advised to contact 211 or emergency services if a crisis recurs prior to next outpatient appointment. Patient signed a Community Care Team (CCT) release of information - this science writer will fax her evaluation today for their review. Referrals Keli Becker APRN (PCP/Family)
== END 2017-09-30 09:35 ==
LOC: ERH 17:55
PROVIDERS: Physician Assistant Medical
DX: F10.129 Alcohol abuse with intoxication, unspecified (principal); R45.851 Suicidal ideations
CPT/HCPCS: 80307; 81003; G0463; G0480; J3360

== ENCOUNTER 2017-12-02 15:58 | Emergency (ER) | payer OTHER ==
[~2017-12-02] VITALS: Ht 154.9 cm; Wt 95.3 kg
--- NOTE | 2017-12-02 16:27 | ED PSYCHIATRIC COMPLAINT ---
See Addendum History of Present Illness General Chief Complaint: ETOH/Drug Related Complaint Stated Complaint: BIBA POLICE PAPERED, +ETOH Source: patient, old records, EMS, police Exam Limitations: intoxication Vital Signs & Intake/Output Vital Signs & Intake/Output Vital Signs Date Time Temp Pulse Resp B/P B/P Pulse O2 O2 Flow FiO2 Mean Ox Delivery Rate 12/03 0024 98.0 73 20 102/63 93 Room Air 12/02 1713 95.0 68 18 110/52 95 Room Air 12/02 1654 Room Air 12/02 1633 96.0 74 20 107/57 96 Room Air ED Intake and Output 12/03 0000 12/02 1200 Intake Total 0 Output Total 0 Balance 0 Intake, Oral 0 Output, Urine 0 Patient 210 lb Weight Allergies Coded Allergies: No Known Allergies (09/29/17) Reconcile Medications Buspirone HCl 10 MG TABLET 1 TAB PO BID MENTAL HEALTH (Reported) Diazepam 5 MG TABLET 1 TAB PO 4XDAILY PRN ANXIETY/PANIC ATTACKS (Reported) Fluoxetine HCl 20 MG CAPSULE 60 MG PO DAILY MENTAL HEALTH (Reported) Triage Nurses Notes Reviewed? yes Onset: Afternoon Duration: hour(s):, constant, continues in ED Timing: recent history Severity: severe Associated Symptoms: anxiety, impaired concentration, suicidal ideation LMP (ages 10-50): post menopausal : No Patient currently breastfeeds: No HPI: 3 hours prior to admission the police were called to the patient's home for verbal fighting between spouses. The patient called 911 several times inquiring about her children. The police were dispatched along with EMS found the patient intoxicated stating she wanted to . She denies fever chills nausea vomiting diarrhea abdominal pain chest pain shortness breath headache dysuria rash bleeding. (Filemon Jackson MD) Past History Travel History Traveled to [place] past 21 day No Medical History Any Pertinent Medical History? 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 No (Filemon Jackson MD) Review of Systems Review of Systems Constitutional: Reports: no symptoms. EENTM: Reports: no symptoms. Respiratory: Reports: no symptoms. Cardiovascular: Reports: no symptoms. GI: Reports: no symptoms. Genitourinary: Reports: no symptoms. Musculoskeletal: Reports: no symptoms. Skin: Reports: no symptoms. Neurological/Psychological: Reports: see HPI, cognitive dysfunction, confusion, emotional problems. Hematologic/Endocrine: Reports: no symptoms. Immunologic/Allergic: Reports: no symptoms. All Other Systems: Reviewed and Negative (Filemon Jackson MD) Physical Exam Physical Exam General Appearance: well developed/nourished, alert, awake, anxious, severe distress, intoxicated, obese Head: atraumatic, normal appearance Eyes: Bilateral: normal appearance, PERRL, EOMI. Ears, Nose, Throat: normal pharynx, normal ENT inspection, hearing grossly normal, moist mucus membranes Neck: normal inspection, supple, full range of motion, no midline tenderness Respiratory: normal breath sounds, chest non-tender, no respiratory distress, quiet respiration, lungs clear Cardiovascular: regular rate/rhythm, normal peripheral pulses, norml femoral pulses equa Gastrointestinal: normal bowel sounds, soft, non-tender, no organomegaly Extremities: normal range of motion, no ligament instability Neurological/Psychiatric: no motor/sensory deficits, awake, agitated, alert, anxious, organ teacher II-XII nml as tested, disoriented x 3 Appearance/Memory/Insight: disheveled, impaired insight Behavoir/Eye Contact/Speech: uncooperative, compulsive, increased rate of speech , threatening eye contact Thoughts/Hallucinations: no apparent hallucination Skin: intact, normal color, warm/dry SAD PERSONS SAD PERSONS Response Value Age <19 or >45 years? yes 1 Depression/Hopelessness? yes 2 Previous Attempts/Psych Care yes 1 Excessive Ethanol/Drug Use? yes 1 Rational Thinking Loss? yes 2 Social Support? has support 0 Total 7 SAD PERSONS Done? yes (Filemon Jackson MD) Progress Differential Diagnosis: drug intoxication, drug overdose, drug withdrawal, electrolyte abnormality, hypoglycemia Plan of Care: Orders Procedure Date/time Status ED CRISIS PSYCH CONSULT 12/02 1911 Active Continuous Observation Monitor 12/02 1605 Active CIWA 12/02 1605 Active URINE DRUG SCREEN FOR ER ONLY 12/02 1605 Complete ETHANOL 12/02 1605 Complete COMPREHENSIVE METABOLIC PANEL 12/02 1605 Complete CBC WITHOUT DIFFERENTIAL 12/02 1605 Complete Laboratory Tests 12/02/17 1710: Anion Gap 15, Estimated GFR > 60, BUN/Creatinine Ratio 26.3 H, Glucose 102 H, Calcium 9.7, Total Bilirubin 0.3, AST 21, ALT 25, Alkaline Phosphatase 86, Total Protein 7.0, Albumin 3.9, Globulin 3.1, Albumin/Globulin Ratio 1.3, CBC w Diff NO MAN DIFF REQ, RBC 4.86, MCV 93.8, MCH 32.3 H, MCHC 34.4, RDW 12.9, MPV 7.9, Gran % 62.9, Lymphocytes % 30.4, Monocytes % 4.0, Eosinophils % 2.2, Basophils % 0.5, Absolute Granulocytes 6.6 H, Absolute Lymphocytes 3.2, Absolute Monocytes 0.4, Absolute Eosinophils 0.2, Absolute Basophils 0.1, Serum Alcohol 210.0 12/02/17 1622: Urine Opiates Screen < 100, Methadone Screen < 40, Barbiturate Screen < 60, Ur Phencyclidine Scrn < 6.00, Amphetamines Screen < 100, U Benzodiazepines Scrn > 800 H, Urine Cocaine Screen < 50, Urine Cannabis Screen < 5.00 Hand-Off Endorsed To: Cata LINCOLN,Khris Del Rio Endorsed Time: 1899 Pending: CT, consult Comments: After changing into paper scrubs patient collapsed to the ground without injury unresponsive to stimuli. 10 minutes later she awoke agitated confused aggressive. Sedation ordered for patient and staff safety. (Manuel LINCOLN,Filemon) Diagnostic Imaging: Viewed by Me: CT Scan. Discussed w/RAD: CT Scan. Radiology Impression: PATIENT: EMILY HERNANDEZ PRESENT AGE: 52 PATIENT ACCOUNT NO: [id number] : 63 LOCATION: [facility], [place] ORDERING PHYSICIAN: Filemon Jackson MD SERVICE DATE: 12/02/17 EXAM TYPE: CAT - CT HEAD WO IV CONTRAST EXAMINATION: CT HEAD without contrast CLINICAL INFORMATION: EtOH COMPARISON: No prior CT scan available for comparison. TECHNIQUE: Computer axial tomographic sections acquired at 2.5 mm thin section without contrast. Reconstructed coronal views. DLP: mGy-cm FINDINGS: CEREBRAL HEMISPHERES: There is no evidence of intra-axial or extra-axial mass, hemorrhage or acute infarct. BRAIN PARENCHYMA: Normal stokes-white matter differentiation. SUBDURAL SPACE: No bleed. BASAL GANGLIA AND PINEAL GLAND: Unremarkable VENTRICLES: Symmetric and normal in size. CEREBELLUM AND BRAINSTEM: No space-occupying mass, hemorrhage or acute infarct. CEREBELLOPONTINE ANGLES: No lesion found. ORBITS: No intraorbital mass. VESSELS: Unremarkable SKULL BASE: Unremarkable INCLUDED SINUSES AT SKULL BASE: Clear SKULL AND SKIN: No fracture or bone lesion found. IMPRESSION: No CT evidence of acute intracranial bleed. No mass or infarct found. DICTATED BY: Wendy Triplett MD DATE/TIME DICTATED:12/02/172125 HAT BAND ATTACHER:MARLO DATE/TIME TRANSCRIBED:12/02/172125 CONFIDENTIAL, DO NOT COPY WITHOUT APPROPRIATE AUTHORIZATION. <Electronically signed in Other Vendor System> SIGNED BY: Wendy Triplett MD 12/02/172133 Hand-Off Endorsed To: Filemon Jackson MD Endorsed Time: 0700 Pending: consult (Cata LINCOLN,Khris Del Rio) Departure Departure Disposition: STILL A PATIENT Condition: Stable Clinical Impression Primary Impression: Alcohol intoxication delirium Secondary Impressions: Suicidal ideation Referrals: Keli Becker APRN (PCP/Family) Departure Forms: Customer Survey General Discharge Information (Filemon Jackson MD)
[2017-12-02 17:21] LABS: ABSOLUTE BASOPHIL COUNT 0.1 /CUMM (0.0-0.2); ABSOLUTE EOSINOPHIL COUNT 0.2 /CUMM (0.0-0.7); ABSOLUTE GRANULOCYTE CT 6.6 /CUMM (1.4-6.5); ABSOLUTE LYMPH COUNT 3.2 /CUMM (1.2-3.4); ABSOLUTE MONOCYTE COUNT 0.4 /CUMM (0.10-0.60); BASOPHIL % 0.5 % (0.0-2.0); EOSINOPHIL % 2.2 % (0-5); GRANULOCYTE % 62.9 % (42.2-75.2); HEMATOCRIT 45.5 % (37-47); MEAN CORPUSCULAR HGB 32.3 PG (27.0-31.0); MEAN CORPUSCULAR HGB CONC 34.4 G/DL (33.0-37.0); MEAN CORPUSCULAR VOLUME 93.8 FL (81.0-99.0); MEAN PLATELET VOLUME 7.9 FL (7.4-10.4); PLATELET COUNT 299 /CUMM (130-400); RBC DISTRIBUTION WIDTH 12.9 % (11.5-14.5); RED BLOOD CELL CT 4.86 /CUMM (4.20-5.40); WHITE BLOOD CELL COUNT 10.5 /CUMM (4.8-10.8)
--- NOTE | 2017-12-02 21:34 | CT SCAN REPORT ---
EXAMINATION: CT HEAD without contrast CLINICAL INFORMATION: EtOH COMPARISON: No prior CT scan available for comparison. TECHNIQUE: Computer axial tomographic sections acquired at 2.5 mm thin section without contrast. Reconstructed coronal views. DLP: mGy-cm FINDINGS: CEREBRAL HEMISPHERES: There is no evidence of intra-axial or extra-axial mass, hemorrhage or acute infarct. BRAIN PARENCHYMA: Normal stokes-white matter differentiation. SUBDURAL SPACE: No bleed. BASAL GANGLIA AND PINEAL GLAND: Unremarkable VENTRICLES: Symmetric and normal in size. CEREBELLUM AND BRAINSTEM: No space-occupying mass, hemorrhage or acute infarct. CEREBELLOPONTINE ANGLES: No lesion found. ORBITS: No intraorbital mass. VESSELS: Unremarkable SKULL BASE: Unremarkable INCLUDED SINUSES AT SKULL BASE: Clear SKULL AND SKIN: No fracture or bone lesion found. IMPRESSION: No CT evidence of acute intracranial bleed. No mass or infarct found.
--- NOTE | 2017-12-02 21:44 | CT SCAN REPORT ---
EXAMINATION: CT CERVICAL SPINE CT cervical spine without contrast EXAMINATION: CLINICAL INFORMATION: EtOH. COMPARISON: Report from prior CT 2015 the images of which are not available. TECHNIQUE: Computed axial sagittal and coronal images acquired using department's standard protocol. CONTRAST: None FINDINGS: SKULL BASE: Visualized structures at skull base are normal, Included facial sinuses are clear, CERVICAL VERTEBRAE: 7 cervical vertebrae identified maintaining normal height and alignments. There are Schmorl node in the inferior endplates of L3 and L4. L5. Posterior spinous process of all vertebrae are intact. The tip of the posterior spinous process of C7 is not infused. DISCS: C1-C2: There is no CT evidence of significant osseous narrowing of the central canal or neural foramen. C2-C3: Bilateral facet joints arthropathy. No central or foraminal stenosis. C3-C4: Mild degenerative disc disease. No central or foraminal stenosis. No fractures. C4-C5: Narrowing of disc space combined with developed posterior osteophyte ridge and facet joints arthropathy cause bilateral foraminal stenosis. There is mild narrowing of the central canal. No fracture. C5-C6: Degenerative disc disease with developed osteophyte ridge causes bilateral mild foraminal stenosis, mild central narrowing. C6-C7: Degenerative disc disease, posterior osteophyte ridge causes mild narrowing of the central canal. No significant foraminal stenosis. No fractures. C7-T1: There is no CT evidence of significant osseous narrowing of the central canal or neural foramen. PARAVERTEBRAL SOFT TISSUE: Paravertebral soft tissues unremarkable. IMPRESSION: 1. Advanced degenerative disc disease of the cervical spine combined with osteophyte ridges at multiple levels cause narrowing of the central canal and foraminal stenosis at multiple levels, if patient is symptomatic, may consider MRI. 2. No CT evidence of acute fracture.
[2017-12-03 10:26] VITALS: BP 137/80
--- NOTE | 2017-12-03 10:37 | ED PSYCH CRISIS CONSULTATION ---
See Addendum Crisis Consult Basic Assessment Date of Consult: 12/03/17 Responsible Person/Accompanied By: self/biba/PEER Insurance Authorization: Insurance #1: Insurance name: HERIBERTO Berman C&A Phone number: Policy number: [id number] Group number: Authorization number: ED Provider: Patient's ED Provider: Filemon Jackson MD Primary Care Physician: Patient's PCP: Keli Becker APRN PCP's Current Psychiatrist: [facility] - most recently Bárbara Stratton APRN Chief Complaint: ETOH/Drug Related Complaint Patient's Quote: I messed up yesterday. Present Illness: Pt is a 52 yo female biba yesterday afternoon to [place] ED on an [place] [employer] PEER documenting pt intoxification and threat to cut herself. Pt ED BAL: 210. Pt urine tox screen also positive for prescribed benzos. Pt reports she relapsed yesterday, drinking 1/2 pint of vodka, after 6-7weeks sobriety. Pt reports she has recently completed [facility] IOP and is currently attending their Relapse Recovery Group. Pt denies SI/HI. Pt reports no gun access. Pt denies AH/VH/ No presence of psychotic thinking. Pt reports a long hx of etoh abuse and is receiving medication management at [facility] most recently with Bárbara Stratton APRN. She has current prescriptions for Valium; Prozac and Buspar. Pt reports "I messed up yesterday. I thought I could drink a little but I can't drink just a little." Pt has been seen several times in [place] ED past few yrs for similiar episodes of making SI statements when intoxicated. Pt denies attempts to ever harm self. Colateral provided by also reports pt has never attempted to harm self. Her Alejanrdo reports she has "never been suicidal". Pt has no hx of inpatient psychiatric tx. Pt has two teenage sons who are at their aunt Beatrice's house due to yesterday incident. Beatrice reports she always takes the kids to her house when she knows or becomes aware that pt has been drinking. DCF is currently involved. Alejandro reports his and pts recent involvement with [facility] was recommended by DCF. Pt presents as tired, cooperative and OX3. Pt offers remorse regarding relapse and motivation to request IOP again tomorrow at [facility] when she attends her relapse Recovery Group. Case reviewed with Dr Hendrickson. Recommendation for pt to return to [facility] IOP and avoid etoh. Reviewed recommendation with pt and . Both feel safe with plan to discharge and agree with resuming IOP program at [facility]. Pt advised to go to [place] ED or [facility] ED if concerns regarding safety return. Patient's Address: [address] [place] [address] [address] [place] [address] Other Phone Number: Who Do You Live With? Family Family/Informants Interviewed: collateral provided by Alejandro Cavanaugh and pt sister Beatrice [phone]. Alejandro reports pt has cut down on drinking since active tx at [facility]. He reports she "fell off the wagon" yesterday. He reports belief that she isn't a safety risk and has never been suicidal. He reports feeling comfortable with plan for pt to d/c home and follow up with [facility] tomorrow. Tod reports concern for kids when sister is drinking. She reports there is DCF involvement. She reports she usually has the kids stay with her when pt is dinking. Allergies - Coded Allergies: No Known Allergies (09/29/17) Current Medications - Scheduled Medications Buspirone HCl 10 MG TABLET 1 TAB PO BID MENTAL HEALTH #60 (Reported) Entered as Reported by Jennifer Villalobos on 05/20/17 1452 Fluoxetine HCl 20 MG CAPSULE 60 MG PO DAILY MENTAL HEALTH #90 (Reported) Entered as Reported by Jennifer Villalobos on 05/11/17 1752 Scheduled PRN Medications Diazepam 5 MG TABLET 1 TAB PO 4XDAILY PRN ANXIETY/PANIC ATTACKS #120 ( Reported) Entered as Reported by Jennifer Villalobos on 05/11/17 175 Laboratory Results: Laboratory Tests 12/02/17 1710: Anion Gap 15, Estimated GFR > 60, BUN/Creatinine Ratio 26.3 H, Glucose 102 H, Calcium 9.7, Total Bilirubin 0.3, AST 21, ALT 25, Alkaline Phosphatase 86, Total Protein 7.0, Albumin 3.9, Globulin 3.1, Albumin/Globulin Ratio 1.3, CBC w Diff NO MAN DIFF REQ, RBC 4.86, MCV 93.8, MCH 32.3 H, MCHC 34.4, RDW 12.9, MPV 7.9, Gran % 62.9, Lymphocytes % 30.4, Monocytes % 4.0, Eosinophils % 2.2, Basophils % 0.5, Absolute Granulocytes 6.6 H, Absolute Lymphocytes 3.2, Absolute Monocytes 0.4, Absolute Eosinophils 0.2, Absolute Basophils 0.1, Serum Alcohol 210.0 12/02/17 1622: Urine Opiates Screen < 100, Methadone Screen < 40, Barbiturate Screen < 60, Ur Phencyclidine Scrn < 6.00, Amphetamines Screen < 100, U Benzodiazepines Scrn > 800 H, Urine Cocaine Screen < 50, Urine Cannabis Screen < 5.00 Past History Past Medical History Neurological: NONE EENT: NONE Cardiovascular: NONE Respiratory: ?COPD Gastrointestinal: NONE Hepatic: NONE Renal: NONE Musculoskeletal: osteoarthritis Psychiatric: alcohol dependence, anxiety, depression, PANIC DISORDER AGORAPHOBIA Endocrine: NONE Blood Disorders: NONE Cancer(s): NONE 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 Advocates for services for 16 yo son with autism. Reports current involvement at [facility]. Physical Limitations (Interventions): none noted Psychiatric Treatment History Psych Treatment Psychiatric Treatment Yes Inpatient Treatment No Outpatient Treatment Yes Location of Treatment Care; [facility] Reason for Treatment alcohol use depression Dates of Treatment current Response to Treatment pt reports motivation to stop drinking. Pt reports recent sobriety since starting [facility] IOP. Pt reports yesterday first etoh use past 6-7 weeks. Diagnosis by History: Anxiety disorder Alcohol use disorder Depressive disorder Substance Use/Abuse History Drug Use/Abuse Substances Used/Abused Yes Substance Used/Abused Alcohol Last Used yesterday How much used/taken 1/2 pint vodka How often pt reports yesterday was first use in 6-7 weeks For how long long hx of alcohol use d/o Substance Abuse Treatment Substance Abuse Treatment Past Substance Abuse TX Yes Inpatient Treatment No Outpatient Treatment Yes Location of Treatment [facility] Reason for Treatment etoh use Dates of Treatment current Response to Treatment pt reports motivation to achieve sobriety Comments: pt reports drinking vodka yesterday. She reports it was 1st relapse since starting [facility] IOP about 8 weeks ago. She denies substance use except for prescribed Valium. Current Mental Status Mental Status Orientation: Person, Place, Situation Affect: Sad Speech: WNL Neuro-vegetative: WNL Appearance Appearance- Dress/Hygiene: hospital scrubs; disheveled; appears older than stated age Behaviors Thought Process: WNL Thought Content: WNL Memory: WNL Insight: Fair SI/HI Risk Assessment Past Suicidal Ideation/Attempts Yes Current Suicidal Ideation/Att No Past Homicidal Ideation/Att: No Current Homicidal Ideation/Attempts No Degree of Intent: None Gravely Disabled: Poor Impulse Control, Poor Judgment Risk Factors: high anxiety/distress, substance abuse, poor impulse control Lethality Ratin PTSD Checklist PTSD Done? patient declined ED Management Sitter: Yes Restraints: No DSM5/PS Stressors/Medical Prob Diagnosis' (DSM 5, Stressors, Medical): Alcohol Use Disoder F10.20 Unspecified Depressive D/O F32.9 financial special needs child marital conflict Current GAF: 35 Comments: Pt reports relapse yesterday following 6-7 weeks sober. Pt denies SI-states I say stupid things when I drinK". Pt reports motivation to get and stay sober. Departure Disposition Psych Medical Clearance Date: 12/03/17 Medically Cleared at: 0930 Time Started: 0930 Time Ended: 1015 Psychiatrist Consulted: Shayla Hendrickson MD Date Disposition Established: 12/03/17 Time Disposition Established: 1100 Plan for Disposition - Modality: Outpatient Facility: [facility] Follow-up Appt Date: 12/04/17 Rationale for Disposition: Pt reports relapse yesterday. Pt reports involvement with [facility] Relapse prevention program. Pt reports she has appointment tomorrow and will request re- enrollment in their IOP. Pt denies SI/HI. No hx of either. Pt Alejandro reports pt is not a safety risk and feels safe and comfortable with her discharge home and plan to follow up tomorrow at IOP. Referrals Keli Becker APRN (PCP/Family)
== END 2017-12-03 11:16 ==
LOC: ERH 15:58
PROVIDERS: Emergency Medicine
DX: F10.121 Alcohol abuse with intoxication delirium (principal); R45.851 Suicidal ideations
CPT/HCPCS: 80307; 96372; G0463; G0480; J1200; J1630; J2405

== ENCOUNTER 2017-12-18 18:39 | Emergency (ER) | payer OTHER ==
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
[2017-12-18 19:33] LABS: ABSOLUTE BASOPHIL COUNT 0 /CUMM (0.0-0.2); ABSOLUTE EOSINOPHIL COUNT 0.1 /CUMM (0.0-0.7); ABSOLUTE GRANULOCYTE CT 4.1 /CUMM (1.4-6.5); ABSOLUTE LYMPH COUNT 2.7 /CUMM (1.2-3.4); ABSOLUTE MONOCYTE COUNT 0.4 /CUMM (0.10-0.60); BASOPHIL % 0.6 % (0.0-2.0); GRANULOCYTE % 55.3 % (42.2-75.2); HEMATOCRIT 48.5 % (37-47); MEAN CORPUSCULAR HGB 32.3 PG (27.0-31.0); MEAN CORPUSCULAR HGB CONC 33.8 G/DL (33.0-37.0); MEAN CORPUSCULAR VOLUME 95.7 FL (81.0-99.0); MEAN PLATELET VOLUME 7.7 FL (7.4-10.4); PLATELET COUNT 349 /CUMM (130-400); RBC DISTRIBUTION WIDTH 12.9 % (11.5-14.5); RED BLOOD CELL CT 5.07 /CUMM (4.20-5.40); WHITE BLOOD CELL COUNT 7.4 /CUMM (4.8-10.8)
[2017-12-19 12:00] VITALS: BP 126/70
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
== END 2017-12-19 12:01 ==
LOC: ERH 18:39
PROVIDERS: Physician Assistant Medical
DX: R45.850 Homicidal ideations (principal); E83.42 Hypomagnesemia; F10.20 Alcohol dependence, uncomplicated
CPT/HCPCS: 80307; 81001; 93005; 93010; 96365; 96366; G0463; G0480; J3360